=== PATIENT | female | born 1930 | race Caucasian/White ===

== ENCOUNTER 2017-10-31 03:07 | Inpatient (IN) | payer MEDICARE, OTHER ==
[~2017-10-31] VITALS: Ht 165.1 cm; Wt 74.5 kg
[2017-10-31] VITALS (20 sets, daily range): BP systolic 78–118; BP diastolic 48–69
[2017-10-31] MEDS ORDERED: AZITHROMYCIN 500 MG in IV NORMAL SALINE 250ML 250 ML IV ONE ×2 (03:15→03:30)
--- NOTE | 2017-10-31 03:26 | PHYS DOC ---
General Chief Complaint: DYSPNEA/RESPIRATOY DISTRESS Stated Complaint: CHEST TIGHTNESS, COUGH Time Seen by MD: 03:12 Source: patient, EMS, [facility] records Exam Limitations: no limitations Problems: History of Present Illness Initial Comments Patient is an 86-year-old female brought to the ED by EMS from [facility] for cough and chest tightness. halfway records indicate that the patient has had a progressively increasing cough for the past 4-5 days. The last few days the patient has had anterior chest and abdominal muscle soreness worse with coughing and movement improved with rest. Cough has been productive with green and brown sputum patient has also had some chills and sweats. Symptoms reportedly worsened overnight and EMS was called. EMS reports that on arrival the patient's oxygen saturation was 85% on room air , improved to 96% on 6 L O2 via nasal cannula and no other pre-arrival treatment. In the ED temperature is 100.8 heart rate is running in the 80s to 90s, blood pressure 119/71 and no tachypnea. Currently without any other treatment the patient is 93% on 2 L O2 via nasal cannula. On arrival the patient is smiling and pleasant, no respiratory distress with the supplemental O2 no conversational dyspnea. Patient denies any chest pain on arrival, she states that she has had no chest discomfort at rest. Patient has been a resident at [place] for 2 years, she suffered a hip fracture one year ago and has been essentially wheelchair-bound since that time. Patient's daughter is at the bedside. PCP is Dr. Guillen Patient has an outside the hospital DNR on the chart. Although the patient has documented cephalosporin allergy the patient and daughter state that the patient has tolerated penicillin in the past without any difficulty. Timing/Duration: getting worse, changing over time, other (4-5 days) Severity: moderate Modifying Factors: worse with movement, improves with rest Associated Symptoms: chest pain, cough, fever/chills, malaise, shortness of breath, other Allergies: Coded Allergies: cephalexin (Verified Allergy, Intermediate, 10/31/17) ciprofloxacin (Verified Allergy, Intermediate, 10/31/17) ibuprofen (Verified Allergy, Intermediate, 10/31/17) levofloxacin (Verified Allergy, Intermediate, 10/31/17) lisinopril (Verified Allergy, Intermediate, 10/31/17) losartan (Verified Allergy, Intermediate, 10/31/17) Past Medical History Medical History: other (osteoporosis, vitamin B and he deficiencies, difficulty walking, left hip fracture, diverticulitis, hypertension, GERD, anxiety, history of falls, hyponatremia, generalized weakness, depression, bilateral knee pain, colon cancer, dementia, osteoarthritis, varicose veins, encephalopathy, symbolic dysfunction, UTI, DVT, history of multiple episodes of bleeding with anticoagulation interventions) Surgical History: other (ORIF left femur, IVC filter) Social History Smoker: non-smoker Alcohol: none Drugs: none Review of Systems All Other Systems: Reviewed and Negative (h/o dementia see HPI) Physical Exam Eyes: right eye other (right conjunctiva injected with yellow discharge), left eye normal inspection, bilateral eye PERRL, bilateral eye EOMI Ear, Nose, Throat: hearing grossly normal, normal ENT inspection (poor dentition with multiple missing teeth), normal pharynx Neck: non-tender, supple Respiratory: no respiratory distress (with O2 supplementation), decreased breath sounds (mildly at the bases), rhonchi (primarily in the right lung field) , other (anterior chest wall is tender with palpatory compression) Cardiovascular: normal peripheral pulses, regular rate, rhythm Extremities: non-tender, no calf tenderness, other (trace pitting lower extremity edema) 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 Chest AP: Cardiac silhouette appears to be enlarged even for a portable study, consolidation noted at the right middle lobe lung field no effusions or apparent and the bony structures appear to be unremarkable. Interpreted by me Pertinent labs: WBC 21.7, Hb 11, BUN 28, Cr 1.6, Lact 1.5, Alb 2.5, Trop I 0.068, BNP 2129, UA/BC/sputum cx pending. Impressions: Respiratory distress Right lower lobe pneumonia Elevated troponin 0.068 demanded ischemia due to hypoxia suspected CHF Renal Insufficiency Right conjunctivitis the patient is a [place] [facility] in-year-old female brought 0432: I discussed the patient with inhalation therapist hospitalist and the patient's PCP Dr. Guillen. He was able to provide some history missing from the records provided. After thorough discussion of the patient's history, presentation, and the results available at the time in the emergency department recommends inpatient ICU admission to continue Unasyn and Zithromax and breathing treatments. He requests that we hold off on anticoagulation for now and use SCDs. Follow cardiac enzymes and consult cardiology if troponin trends upward. Pt received polytrim drops, Unasyn/zithromax IV, tylenol PO, duoneb in ED 0451: Pt BP 99/56 during urinary catheterization, once complete repeat BP 98/ 46 pt is asymptomatic. 500cc NS bolus initiated. Departure Time of Disposition: 04:20 Disposition: ADMITTED INPATIENT Condition: STABLE Additional Instructions: ICU inpatient admission Dr Guillen is accepting. STAS JOHN DO Oct 31, 2017 03:26
[2017-10-31] MEDS: IV NORMAL SALINE 1,000ML 1,000 ML IV SCH ×2 (03:30→04:53)
[2017-10-31] MEDS ORDERED: IPRATRPIUM/ALBUTEROL 0.5/2.5MG 3 ML NEBU. NEB ONE (03:30)
[2017-10-31] MEDS ORDERED: ACETAMINOPHEN 325 MG TABLET PO ONE (03:30)
[2017-10-31] MEDS ORDERED: AMPICILLIN/SULBACTAM 3 GM in IV NORMAL SALINE 100ML 100 ML IV ONE (03:30)
[2017-10-31 03:40] LABS: BASO % 0 % (0-3); EOS % 0 % (0-3); HEMATOCRIT 32.8 % (36.0-47.0); LYMPH # 1.3 x10^3/uL (1.0-4.8); LYMPH % 6 % (24-48); MEAN CORPUSCULAR HEMOGLOBIN 31 pg (25-35); MEAN CORPUSCULAR HGB CONC 34 g/dL (31-37); MEAN CORPUSCULAR VOLUME 93 fL (79-100); MONO # 1.2 x10^3/uL (0.0-1.1); MONO % 6 % (0-9); NEUT % 88 % (31-73); PLATELET COUNT 312 x10^3/uL (140-400); RED BLOOD COUNT 3.53 x10^6/uL (3.50-5.40); RED CELL DISTRIBUTION WIDTH 13.4 % (11.5-14.5); WHITE BLOOD COUNT 21.7 x10^3/uL (4.0-11.0)
[2017-10-31] MEDS ORDERED: IV NORMAL SALINE 100ML 100 ML ONE (03:59)
[2017-10-31] MEDS ORDERED: AMPICILLIN/SULBACTAM 1.5 GM VIAL. IV ONE (03:59)
[2017-10-31 04:03] LABS: ALBUMIN 2.5 g/dL (3.4-5.0); CALCIUM 8.8 mg/dL (8.5-10.1); CREATININE 1.6 mg/dL (0.6-1.0); DIRECT BILIRUBIN 0.2 mg/dL (0.0-0.2); GFR 30.5; POTASSIUM 4.5 mmol/L (3.5-5.1); TOTAL BILIRUBIN 0.6 mg/dL (0.2-1.0); TOTAL PROTEIN 7.3 g/dL (6.4-8.2)
[2017-10-31] MEDS: POLYMYXIN/TRIMETHOPRIM OPHTH SOLUTION 10ML BOTTLE. OD SCH ×6 (04:21→22:00)
[2017-10-31] MEDS ORDERED: ACETAMINOPHEN 325 MG TABLET PO PRN (04:45)
[2017-10-31] MEDS ORDERED: ONDANSETRON PF 4 MG/2 ML VIAL. IV PRN (04:45)
[2017-10-31 05:01] LABS: % LYMPHS 4 % (24-48); % MONOS 8 % (0-10); % SEGS 88 % (35-66); PLT ESTIMATE ADEQUATE (ADEQUATE)
[2017-10-31 05:31] LABS: BILIRUBIN,URINE NEG (NEG); CLARITY,URINE CLOUDY; COLOR,URINE YELLOW; GLUCOSE,URINE NEG (NEG)
[2017-10-31 05:32] LABS: BACTERIA,URINE MOD /HPF (0-FEW); NITRITE,URINE NEG (NEG); RBC,URINE RARE /HPF (0-2); SQUAMOUS EPITHELIAL CELL,UR MOD /LPF; UROBILINOGEN,URINE 0.2 mg/dL (0.2 mg/dL)
[2017-10-31 05:33] LABS: AMORPHOUS SEDIMENT,UR PRESENT /HPF
[2017-10-31 06:09] LABS: INFLUENZA A PATIENT NEGATIVE (NEGATIVE); INFLUENZA B PATIENT NEGATIVE (NEGATIVE)
[2017-10-31] MEDS ORDERED: POLY17PO5 PO (06:38)
[2017-10-31] MEDS ORDERED: FAMO20TA5 PO (06:39)
[2017-10-31] MEDS ORDERED: ACET325T9 PO (06:39)
[2017-10-31] MEDS ORDERED: CRAN450C PO (06:40)
[2017-10-31] MEDS ORDERED: METO50TA6 PO (06:40)
[2017-10-31] MEDS ORDERED: FERR-26 PO (06:41)
[2017-10-31] MEDS ORDERED: FURO-68 PO (06:41)
--- NOTE | 2017-10-31 06:42 | EKG ---
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
[2017-10-31] MEDS ORDERED: vitamin b12 IM (06:43)
[2017-10-31] MEDS ORDERED: POTA20TA4 PO (06:45)
[2017-10-31] MEDS ORDERED: HYDR-2762 PO (06:45)
[2017-10-31] MEDS ORDERED: IV NORMAL SALINE 1,000ML 1,000 ML IV ONE (07:00)
--- NOTE | 2017-10-31 07:42 | RAD ---
AP and lateral chest History: Cough, chest pain AP and lateral views were taken of the chest.. Heart is enlarged. Patient is not taken a deep inspiration. There is marked arthritis in both shoulders. There is no effusion. There is respiratory motion on the lateral view. There are possible mild right basilar infiltrates. There is no old study for comparison. Impression: 1. Mild right basilar infiltrates.
[2017-10-31] MEDS: FAMOTIDINE 20 MG TABLET PO SCH (08:53)
[2017-10-31] MEDS: LACTOBACILLUS RHAMNOSUS GG 1 CAPSULE. PO SCH ×2 (08:53→20:19)
[2017-10-31] MEDS: HYDROcodone/APAP 7.5/325MG 1 TAB TABLET PO SCH ×2 (08:54→10:29)
[2017-10-31] MEDS: FERROUS SULFATE 325 MG TABLET. PO SCH ×2 (08:54→20:19)
[2017-10-31] MEDS: IPRATRPIUM/ALBUTEROL 0.5/2.5MG 3 ML NEBU. NEB SCH ×4 (09:24→21:22)
--- NOTE | 2017-10-31 11:12 | RAD ---
Supine abdomen. History: Vena cava filter placement Supine view of the abdomen shows a vena cava filter in the the predicted location of the vena cava between the inferior aspect of L1 in the supine or aspect of L3. There is mild bowel distention without bowel obstruction. There is degenerative change and scoliosis in the lumbar spine. There are changes from surgery at the rectum. Impression: 1. Vena cava filter in position.
--- NOTE | 2017-10-31 11:39 | HP ---
ADMIT DATE: 10/31/2017 HISTORY OF PRESENT ILLNESS: The patient is an 86-year-old female patient, a resident at [facility] who apparently has had cough that has been progressively worsening over the last 4-5 days. She also complained of anterior chest and abdominal soreness, worse with coughing and movement and improves with rest. The cough has been productive with green and brownish sputum. She also complained of some chills and sweats. As her symptoms had worsened last night, the patient was brought to the Emergency Room. On arrival, the emergency medical service personnel to the retirement, she was hypoxic. Her oxygen saturation was 95% on room air that has improved to 96% with 6 liters of oxygen by nasal cannula. Her temperature was slightly high at 100.8; however, she has no tachypnea. She was investigated in the Emergency Room and her white cell count was high at 21,700. She was also slightly dehydrated and her first set of troponin was slightly elevated at 0.068. Her D-dimer was high at 7.56. She has history of DVT and IVC before. She was actually on Xarelto that was discontinued because she has multiple episodes of fresh blood per rectum. The patient was admitted with healthcare-associated pneumonia and was started on Unasyn and Zithromax. She has multiple allergies to MULTIPLE ANTIBIOTICS. PAST MEDICAL HISTORY: Significant for hypertension, hyponatremia. She is also known to have generalized anxiety, depression and dementia, history of diverticulitis, gastroesophageal reflux disease, generalized osteoarthritis and osteoporosis. She did have a history of DVT and PE before as well as multivitamin A and B group deficiency. Has history of also colon cancer, status post partial colectomy. The patient has also had difficulty walking and severe osteoarthritis of both knee joints. She is mostly wheelchair bound. PAST SURGICAL HISTORY: Significant for IVC filter. She also has a history of a right femoral neck fracture, status post open reduction and internal fixation and colonoscopy and partial colectomy. ALLERGIES: She is allergic to CEPHALEXIN, CIPROFLOXACIN, IBUPROFEN, LEVOFLOXACIN, LISINOPRIL AND LOSARTAN. MEDICATIONS: She was on following medications at the [facility] facility. She is on MiraLax 17 grams daily as needed. She is on Tylenol 650 mg every 4 hours as needed, famotidine 20 mg once a day, metoprolol tartrate 50 mg twice a day, cranberry tablets 450 mg twice a day, ferrous sulfate 325 mg twice a day, Lasix 40 mg once a day, B12 1000 mcg intramuscular once a month, Mccurtain 7.5/325 one tablet every 6 hours as needed, potassium chloride 20 mEq twice a day. FAMILY HISTORY: Unremarkable. SOCIAL HISTORY: She is , has 3 daughters. She has never smoked, does not drink alcohol or use any recreational drugs. She is currently a resident at [facility]. REVIEW OF SYSTEMS: As per history of present illness. PHYSICAL EXAMINATION: GENERAL: On arrival to the Emergency Room, the patient was pale, but no jaundiced, cyanosis, or thyromegaly. No jugular venous distension. No lower limb edema. VITAL SIGNS: Her heart rate was 95, blood pressure was 99/58, temperature was 100.8, respiratory rate was 28 and oxygen saturation was 90% on room air that has improved to 93% on 2 liters of oxygen. HEENT: Showed normocephalic, atraumatic. NECK: Supple. HEART: Showed normal first and second heart sounds with no gallop, rub or murmur. CHEST: Showed central trachea, equal bilateral expansion, air entry, vesicular sounds, very few crepitation mostly in the right side posteriorly. I could not appreciate any rhonchi. ABDOMEN: Distended, soft, nontender. NEUROLOGIC: She is awake, alert, responding mostly appropriately. All her cranial nerves intact. She moves upper extremities much to good extent than lower extremities as she is mostly bedbound, chair bound. LABORATORY DATA: On arrival showed a white cell count of 21,700, hemoglobin 11, hematocrit 33, MCV 93, and platelet count of 312,000 with normal manual differential. Her serum sodium 138, potassium 4.5, chloride 102, bicarbonate 27, anion gap of 9, BUN 28, creatinine 1.6, estimated GFR was 30.5, glucose was 110, lactic acid is only 1.5, calcium was 8.8. Total bilirubin, AST, ALT, alkaline phosphatase were normal. Her Troponin was 0.068. Her beta-natriuretic peptide was 2129. Total protein was 7.3, albumin 2.5. Her D-dimer is high at 7.56; however, she is already known to have bilateral deep vein thrombosis. She has an inferior vena cava filter. She used to be on Xarelto. Her urinalysis showed the urine was yellow, cloudy with a pH of 5, specific gravity of 1.015. There was trace of protein. The urine was negative for glucose, ketones, blood, nitrite and small amount of leukocyte esterase with rare rbc,, 11-20 wbc, moderate amount of bacteria and her serology was negative for influenza A and B. Her chest x-ray showed that the heart is enlarged. The patient is not taking deep breath; however, there is marked arthritis in both shoulders. There is no effusion. There is respiratory motion in the lateral view, possible mild right basilar infiltrate. There is no old study for comparison. ASSESSMENT AND PLAN: Basically, the patient was admitted for right lower lobe infiltrate and was treated for healthcare-associated pneumonia. She is unfortunately allergic to CEPHALEXIN as well as CIPRO AND LEVOFLOXACIN, and therefore she was started on Unasyn as well as Zithromax. I held some of her medication including her Lasix, metoprolol and potassium as her blood pressure was somewhat low. We will do 2 more sets of cardiac enzymes. Her EKG showed that she was in sinus tachycardia with a heart rate of 93 beats per minute with no evidence of ST segment elevation or depression. AISHA LARA MD DR: SAMEERA/elizabeth JOB#: [id number] / [id number]
--- NOTE | 2017-10-31 12:43 | RAD ---
Bilateral lower extremity venous Doppler study. History: Elevated D dimer, history of vena cava filter Bilateral lower extremity Doppler study was performed. The right common femoral vein is compressible and has flow with color imaging. Right profunda femoral vein is compressible and has flow with color imaging. The right superficial femoral vein is incompletely compressible, there is only flow at the margin of the superficial femoral vein consistent with partial venous thrombosis. The popliteal vein is compressible and has flow with color imaging. There is decreased flow in the peroneal veins suggesting venous thrombosis. In the left lower extremity the common femoral vein is compressible. There is flow in the proximal superficial femoral vein and deep femoral vein proximally. The mid left superficial femoral vein is mildly echogenic and has decreased compressibility suggesting partial thrombosis or old partly recanalized venous thrombosis. The left popliteal vein is compressible and has flow with color imaging. There is flow in the deep veins the left calf with color imaging. Impression: 1. Right femoral vein acute deep venous thrombosis. 2. Probable acute deep venous thrombosis in the right peroneal vein. 3. Acute versus chronic partial venous thrombosis of the left superficial femoral vein.
[2017-10-31 13:34] LABS: BLOOD UREA NITROGEN 29 mg/dL (7-20); CREATINE KINASE 36 U/L (26-192)
[2017-10-31 14:14] LABS: CREATININE 1.7 mg/dL (0.6-1.0); GFR 28.4
[2017-10-31] MEDS ORDERED: ENOXAPARIN ** NOTE DOSE ** SYRINGE SQ SCH (15:00)
[2017-10-31] MEDS: NORMAL SALINE IV SCH (16:38)
[2017-10-31] MEDS: SULBACTAM IV SCH (16:38)
[2017-10-31] MEDS: AMPICILLIN IV SCH (16:38)
[2017-11-01] VITALS (23 sets, daily range): BP systolic 97–138; BP diastolic 49–74
[2017-11-01] MEDS: AZITHROMYCIN 500 MG in IV NORMAL SALINE 250ML 250 ML IV SCH (03:52)
[2017-11-01] MEDS: SULBACTAM IV SCH ×2 (05:07→17:06)
[2017-11-01] MEDS: NORMAL SALINE IV SCH ×2 (05:07→17:06)
[2017-11-01] MEDS: AMPICILLIN IV SCH ×2 (05:07→17:06)
[2017-11-01] MEDS: IPRATRPIUM/ALBUTEROL 0.5/2.5MG 3 ML NEBU. NEB SCH ×4 (05:44→20:20)
[2017-11-01] MEDS: POLYMYXIN/TRIMETHOPRIM OPHTH SOLUTION 10ML BOTTLE. OD SCH ×5 (05:57→21:48)
[2017-11-01] MEDS: ACETAMINOPHEN 325 MG TABLET PO PRN (06:09)
[2017-11-01 06:42] LABS: ALBUMIN 2.1 g/dL (3.4-5.0); ALBUMIN/GLOBULIN RATIO 0.5 (1.0-1.7); CALCIUM 8.4 mg/dL (8.5-10.1); CREATININE 1.3 mg/dL (0.6-1.0); GFR 38.7; TOTAL BILIRUBIN 0.3 mg/dL (0.2-1.0); TOTAL PROTEIN 6.3 g/dL (6.4-8.2)
[2017-11-01 06:43] LABS: HEMATOCRIT 27.9 % (36.0-47.0); HEMOGLOBIN 9.2 g/dL (12.0-15.5); RED BLOOD COUNT 2.97 x10^6/uL (3.50-5.40); RED CELL DISTRIBUTION WIDTH 13.3 % (11.5-14.5); WHITE BLOOD COUNT 11.9 x10^3/uL (4.0-11.0)
[2017-11-01] MEDS ORDERED: ENOXAPARIN ** NOTE DOSE ** SYRINGE SQ SCH (10:00)
[2017-11-01] MEDS: LACTOBACILLUS RHAMNOSUS GG 1 CAPSULE. PO SCH ×2 (10:29→20:24)
[2017-11-01] MEDS: FAMOTIDINE 20 MG TABLET PO SCH (10:29)
[2017-11-01] MEDS: FERROUS SULFATE 325 MG TABLET. PO SCH ×2 (10:29→20:24)
[2017-11-01] MEDS ORDERED: RIVAROXABAN 15 MG TABLET. PO SCH (17:00)
[2017-11-01] MEDS: APIXABAN 5 MG TABLET. PO SCH (20:24)
[2017-11-01] MEDS: MELATONIN 3 MG TABLET PO SCH (21:47)
--- NOTE | 2017-11-01 23:27 | PN ---
DATE: 11/01/2017 CURRENT PROBLEMS: 1. Elevated D-dimer with a right femoral vein deep venous thrombosis and probable right peroneal deep venous thrombosis. 2. Healthcare-associated pneumonia. 3. Hypertension. 4. Anxiety. 5. Dementia. 6. Depression. 7. Fall risk. 8. Elevated troponin. 9. Acute kidney injury. 10. Leukocytosis. 11. Normochromic normocytic anemia. 12. Possible urinary tract infection, but this was a contaminated specimen. NARRATIVE: The patient is doing better today, sitting up, eating her breakfast; she states that she is feeling better. She is pleasantly confused. OBJECTIVE: VITAL SIGNS: Temperature 99.5, pulse 95, respirations 20, blood pressure 110/54, pulse ox 95% on 5 liters. GENERAL: Color pale. HEENT: Tongue slightly dry. NECK: Supple. LUNGS: Clear. CARDIOVASCULAR: Regular rhythm and rate. ABDOMEN: Soft, nontender. EXTREMITIES: Left leg definitely swollen. Pulses are intact. Right leg slightly swollen, but pulses are intact. LABORATORY DATA: Reviewed. PLAN: Anticoagulation, IV antibiotics, oxygen, monitor for falls. PT and OT. ZOILA CHAVEZ DO DR: LENI/elizabeth JOB#: [id number] / [id number]
[2017-11-02] VITALS (19 sets, daily range): BP systolic 105–142; BP diastolic 52–78
[2017-11-02] MEDS: AZITHROMYCIN 500 MG in IV NORMAL SALINE 250ML 250 ML IV SCH (04:08)
[2017-11-02] MEDS: SULBACTAM IV SCH ×2 (05:02→16:45)
[2017-11-02] MEDS: AMPICILLIN IV SCH ×2 (05:02→16:45)
[2017-11-02] MEDS: NORMAL SALINE IV SCH ×2 (05:02→16:45)
[2017-11-02] MEDS: IPRATRPIUM/ALBUTEROL 0.5/2.5MG 3 ML NEBU. NEB SCH ×4 (05:41→21:08)
[2017-11-02 06:16] LABS: BASO % 0 % (0-3); EOS # 0.2 x10^3/uL (0.0-0.7); EOS % 2 % (0-3); HEMATOCRIT 26.3 % (36.0-47.0); LYMPH # 0.7 x10^3/uL (1.0-4.8); LYMPH % 8 % (24-48); MEAN CORPUSCULAR HEMOGLOBIN 32 pg (25-35); MEAN CORPUSCULAR HGB CONC 34 g/dL (31-37); MEAN CORPUSCULAR VOLUME 94 fL (79-100); MONO # 0.7 x10^3/uL (0.0-1.1); MONO % 8 % (0-9); NEUT # 7.1 x10^3uL (1.8-7.7); NEUT % 82 % (31-73); PLATELET COUNT 255 x10^3/uL (140-400); RED BLOOD COUNT 2.82 x10^6/uL (3.50-5.40); RED CELL DISTRIBUTION WIDTH 13.6 % (11.5-14.5); WHITE BLOOD COUNT 8.7 x10^3/uL (4.0-11.0)
[2017-11-02] MEDS: POLYMYXIN/TRIMETHOPRIM OPHTH SOLUTION 10ML BOTTLE. OD SCH ×5 (06:23→20:06)
[2017-11-02 06:28] LABS: ALBUMIN 1.8 g/dL (3.4-5.0); ALBUMIN/GLOBULIN RATIO 0.4 (1.0-1.7); CALCIUM 8.4 mg/dL (8.5-10.1); CREATININE 1.3 mg/dL (0.6-1.0); GFR 38.7; MAGNESIUM 1.4 mg/dL (1.8-2.4); POTASSIUM 3.9 mmol/L (3.5-5.1); TOTAL BILIRUBIN 0.3 mg/dL (0.2-1.0); TOTAL PROTEIN 6.1 g/dL (6.4-8.2)
[2017-11-02] MEDS ORDERED: MAGNESIUM SULFATE 2GM 50 ML IV ONE (08:00)
[2017-11-02] MEDS: FERROUS SULFATE 325 MG TABLET. PO SCH ×2 (08:26→20:06)
[2017-11-02] MEDS: FAMOTIDINE 20 MG TABLET PO SCH (08:26)
[2017-11-02] MEDS: LACTOBACILLUS RHAMNOSUS GG 1 CAPSULE. PO SCH ×2 (08:26→20:06)
[2017-11-02] MEDS: HYDROcodone/APAP 7.5/325MG 1 TAB TABLET PO SCH (08:27)
[2017-11-02] MEDS: APIXABAN 5 MG TABLET. PO SCH ×2 (08:27→20:06)
--- NOTE | 2017-11-02 15:13 | RAD ---
Portable chest, 11/02/2017: History: Follow-up pneumonia Comparison is made to a study from 10/31/2017. The depth of inspiration is better than on the previous study. The heart is at the upper limits of normal in size. There is calcific plaquing and tortuosity of the thoracic aorta. The pulmonary vascularity is normal. There are mild ongoing bibasilar pulmonary opacities. The upper lung strong are clear. No pleural fluid is evident. The bony structures are demineralized. Severe degenerative changes are evident at both shoulders. IMPRESSION: 1. Borderline cardiomegaly and aortic atherosclerosis. 2. Mild persistent basilar opacities compatible with residual pneumonia, although there may be a component of fibrosis.
[2017-11-02] MEDS: MELATONIN 3 MG TABLET PO SCH (20:06)
[2017-11-02] MEDS: ACETAMINOPHEN 325 MG TABLET PO PRN (20:06)
[2017-11-03] VITALS (10 sets, daily range): BP systolic 103–127; BP diastolic 56–80
--- NOTE | 2017-11-03 03:05 | PN ---
DATE: 11/01/2017 CURRENT PROBLEMS: 1. Right femoral vein deep venous thrombosis. 2. Urinary traction infection growing greater than 100,000 gram-negative rods. 3. Right basilar infiltrate. 4. Elevated D-dimer. 5. Healthcare-associated pneumonia. 6. Hypertension. 7. Anxiety. 8. Dementia. 9. Depression. 10. Fall risk. 11. Elevated troponin. 12. Acute kidney injury. 13. Leukocytosis. 14. Normochromic normocytic anemia. 15. Severe protein calorie malnutrition. SUBJECTIVE: The patient became quite anxious last night and had received some anxiolytic because she became quite mad and was asking for her daughter, but seems to be resting comfortably this morning and is making an attempt to eat her breakfast. She started on Eliquis yesterday. OBJECTIVE: VITAL SIGNS: Blood pressure 135/78, pulse 94, respirations 28, pulse ox is 92% on 2 liters, also 98% on 2 liters. GENERAL: Color is pale. She is up and alert, cooperative, calm. HEENT: Tongue slightly dry. NECK: Supple. LUNGS: With a few crackles in the bases. CARDIOVASCULAR: Regular rhythm and rate. ABDOMEN: Soft, nontender. EXTREMITIES: With a trace to 1+ edema. LABORATORY DATA: White blood cell count now is normal with hemoglobin of 9, hematocrit 26.3, that is after hydration, her creatinine now is 1.3, it should be her baseline, down from 1.7, albumin 2.1. PLAN: Continue IV antibiotics and anticoagulants, monitor for any kind of bleeding, PT and OT has been ordered. ZOILA CHAVEZ DO DR: LENI/elizabeth JOB#: [id number] / [id number]
[2017-11-03] MEDS: AZITHROMYCIN 500 MG in IV NORMAL SALINE 250ML 250 ML IV SCH (03:31)
[2017-11-03] MEDS: SULBACTAM IV SCH (04:45)
[2017-11-03] MEDS: NORMAL SALINE IV SCH (04:45)
[2017-11-03] MEDS: AMPICILLIN IV SCH (04:45)
[2017-11-03] MEDS: POLYMYXIN/TRIMETHOPRIM OPHTH SOLUTION 10ML BOTTLE. OD SCH ×2 (04:46→10:09)
[2017-11-03] MEDS: IPRATRPIUM/ALBUTEROL 0.5/2.5MG 3 ML NEBU. NEB SCH ×2 (05:43→09:48)
[2017-11-03 08:23] LABS: HEMATOCRIT 28.1 % (36.0-47.0); HEMOGLOBIN 9.5 g/dL (12.0-15.5); RED BLOOD COUNT 3.02 x10^6/uL (3.50-5.40); RED CELL DISTRIBUTION WIDTH 13.8 % (11.5-14.5); WHITE BLOOD COUNT 7.8 x10^3/uL (4.0-11.0)
[2017-11-03 08:41] LABS: ALBUMIN 2.2 g/dL (3.4-5.0); ALBUMIN/GLOBULIN RATIO 0.5 (1.0-1.7); CALCIUM 8.7 mg/dL (8.5-10.1); CREATININE 1.4 mg/dL (0.6-1.0); GFR 35.6; MAGNESIUM 2.1 mg/dL (1.8-2.4); TOTAL BILIRUBIN 0.3 mg/dL (0.2-1.0); TOTAL PROTEIN 6.8 g/dL (6.4-8.2)
[2017-11-03] MEDS: LACTOBACILLUS RHAMNOSUS GG 1 CAPSULE. PO SCH (08:44)
[2017-11-03] MEDS: FERROUS SULFATE 325 MG TABLET. PO SCH (08:46)
[2017-11-03] MEDS: FAMOTIDINE 20 MG TABLET PO SCH (08:46)
[2017-11-03] MEDS: APIXABAN 5 MG TABLET. PO SCH (08:46)
[2017-11-03] MEDS: HYDROcodone/APAP 7.5/325MG 1 TAB TABLET PO SCH ×2 (08:48→08:52)
[2017-11-03] MEDS ORDERED: DOXYCYCLINE HYCLATE 100 MG TABLET PO SCH (09:15)
[2017-11-03] MEDS ORDERED: METOPROLOL TART IMMED RELEASE 25 MG TABLET PO SCH (10:00)
--- NOTE | 2017-11-03 21:21 | DS ---
DATE OF DISCHARGE: 11/03/2017 DISCHARGE DIAGNOSES: 1. Acute right femoral vein deep venous thrombosis. 2. Urinary tract infection with Klebsiella pneumoniae. 3. Right basilar infiltrate. 4. Elevated D-dimer. 5. Healthcare-associated pneumonia. 6. Hypertension. 7. Anxiety. 8. Dementia. 9. Depression. 10. Fall risk. 11. Elevated troponin. 12. Acute kidney injury, resolved. 13. Leukocytosis. 14. Normochromic normocytic anemia 15. Severe protein-calorie malnutrition. HOSPITAL COURSE: This is an 86-year-old female who was admitted from [place] by Dr. Guillen with progressive cough, worsening over the last 5 days. The patient was found to have pneumonia, urinary tract infection as well as a right lower extremity DVT. She was started on Eliquis, which will need to be watched very closely due to her having rectal bleeding, on Xarelto. The urine culture grew out Klebsiella pneumoniae, which was not sensitive to the antibiotics that she was on, but she was switched to doxycycline prior to discharge. She was seen by PT and OT, deemed a good candidate for [facility]. PHYSICAL EXAMINATION: VITAL SIGNS: On day of discharge, blood pressure 104/56, pulse 81, O2 sat 98% on 2 liters. GENERAL: Color is slightly pale. She is much more alert. LUNGS: Clear. CARDIOVASCULAR: Regular rhythm and rate, 2/6 systolic murmur. EXTREMITIES: With a trace of edema. LABORATORY DATA: Creatinine has come down to 1.4 from 1.7. BUN normal. Albumin is 2.2. She is on hemoglobin 9.5, hematocrit 28.1. PLAN: Discharge to [facility] at [place]. Medications have been reconciled. ZOILA CHAVEZ DO DR: LENI/elizabeth JOB#: [id number] / [id number]
== END 2017-11-03 13:18 | disposition home or self-care (01) | DRG 299 ==
LOC: ER 03:15 → ICU 04:41
PROVIDERS: ADMIT Internal Medicine; ATTEND Internal Medicine
DX: I82.411 Acute embolism and thrombosis of right femoral vein (principal); J18.9 Pneumonia, unspecified organism; E43 Unspecified severe protein-calorie malnutrition; N17.9 Acute kidney failure, unspecified; D64.9 Anemia, unspecified; E86.0 Dehydration; F03.90 Unspecified dementia, unspecified severity, without behavioral disturbance, psychotic disturbance, mood disturbance, and anxiety; K62.5 Hemorrhage of anus and rectum; N39.0 Urinary tract infection, site not specified; B96.1 Klebsiella pneumoniae [K. pneumoniae] as the cause of diseases classified elsewhere; F32.9 Major depressive disorder, single episode, unspecified; M17.0 Bilateral primary osteoarthritis of knee; F41.1 Generalized anxiety disorder; I10 Essential (primary) hypertension; K21.9 Gastro-esophageal reflux disease without esophagitis; M81.0 Age-related osteoporosis without current pathological fracture; R09.02 Hypoxemia; Y95 Nosocomial condition; Z66 Do not resuscitate; Z85.038 Personal history of other malignant neoplasm of large intestine; Z86.711 Personal history of pulmonary embolism; Z86.718 Personal history of other venous thrombosis and embolism; Z88.1 Allergy status to other antibiotic agents; Z90.49 Acquired absence of other specified parts of digestive tract; Z91.81 History of falling; Z99.3 Dependence on wheelchair; Z87.81 Personal history of (healed) traumatic fracture; Z88.8 Allergy status to other drugs, medicaments and biological substances; Z68.27 Body mass index [BMI] 27.0-27.9, adult
CPT/HCPCS: 36415; 51701; 71010; 71020; 74000; 80048; 80053; 80076; 81001; 82550; 82565; 83605; 83735; 83880; 84484; 84520; 85007; 85025; 85027; 85379; 87040; 87086; 87186; 87641; 87804; 93005; 93970; 94640; 96365; J0295; J0456; J1650; J3475; J7050; J7620; 97116; 97530; 97535; 99285-25; J7030